=== PATIENT | female | born 1980 | race Caucasian/White ===

== ENCOUNTER → 2018-06-10 09:19 | Outpatient (CLI) | payer OTHER, SELFPAY ==
[2018-06-10 10:33] LABS: Hemoglobin A1c 5.9 % (4.2-6.3)
== END ==
PROVIDERS: Family Provider Family Medicine; PCP Family Medicine; Visit Provider Family Medicine
DX: E78.1 Pure hyperglyceridemia (principal); R73.01 Impaired fasting glucose
CPT/HCPCS: 36415; 83036

== ENCOUNTER 2019-05-03 03:44 | Emergency (ER) | payer OTHER, SELFPAY ==
[2019-01-25 10:52] VITALS: BMI 34.3
[2019-05-03 03:45] VITALS: BP 148/66; PULSE 100; RESP 20; TEMP 37.2; O2SAT 95; BMI 34.4
--- NOTE | 2019-05-03 04:13 | ED.VISSUMM ---
- ER Visit Summary Date of Service: 05/03/19 Chief Complaint: Back pain History of Present Illness: The patient is a 38 F who presents with back pain. This began yesterday around 5 PM. She describes it as sharp and shooting located in the lower back more so on the left. She denies any radiation to the legs. She has some chronic paresthesias burning numbness over the lateral left thigh but this is actually improved some since her back pain began. If standing still her pain is only 1 out of 10 however with movements it is severe at 10 out of 10. Is worsened by bending. Is relieved by standing or walking. No fevers, abdominal pain, urinary retention, fecal incontinence, prior back surgeries. Physical Examination: Heart rate 100 Patient standing at the edge of the bed and appears to be in pain Moist mucous membranes Heart regular rate and rhythm Lungs are clear No reproducible back tenderness 5 out of 5 dorsiflexion, plantarflexion, extensor hallucis longus Negative straight leg raise bilaterally Test Results: Not indicated Emergency Department Course and Treatment: Patient presents with lower back pain. She does not have signs or symptoms suggestive of serious acute pathology such as cauda equina syndrome or epidural abscess. She has normal strength and sensation. We will place her on a burst of prednisone and she was also given intramuscular Toradol here. We discussed opiates but she does not want to take these medications as she does not tolerate them well. She was advised to continue anti-inflammatories. She was advised to follow-up as an outpatient. We discussed she may benefit from other intervention such as physical therapy. She is agreeable to this plan. All questions answered at bedside. Patient discharged. Treatment Plan: [] Disposition: Discharge Impression: Low back pain This note was generated with [employer] dictation software. It may contain incorrect words, spelling, and punctuation that were not noted in review of the chart prior to signing ED Disposition - Plan for ED Patient: Referrals: Yonas Delgadillo III, MD [Primary Care Provider] -
--- NOTE | 2019-05-03 04:16 | ED.DEP ---
ED Disposition - Plan for ED Patient: Instructions: BACK PAIN (Acute or Chronic) Prescriptions: predniSONE tablet 60 mg PO DAILY #15 tab Prescription Printed Referrals: Yonas Delgadillo III, MD [Primary Care Provider] -
[2019-05-03] MEDS: Ketorolac 60 MG/2 ML Vial IM (04:21)
[2019-05-03 04:43] VITALS: BP 127/73
== END 2019-05-03 04:44 | disposition home or self-care (01) ==
LOC: ED 04:17
PROVIDERS: Emergency Provider Emergency Medicine; Family Provider Family Medicine; PCP Family Medicine
DX: M54.5 Low back pain (principal); G47.33 Obstructive sleep apnea (adult) (pediatric); E78.00 Pure hypercholesterolemia, unspecified; R20.0 Anesthesia of skin; R20.2 Paresthesia of skin
CPT/HCPCS: 96372; 99283

== ENCOUNTER 2019-05-11 14:00 | Emergency (ER) | payer OTHER, SELFPAY ==
[2019-05-11 14:01] VITALS: BP 152/89; PULSE 110; RESP 13; TEMP 37.2; O2SAT 96; BMI 34.4
--- NOTE | 2019-05-11 14:09 | NURSING ---
NO OLD EKGS
--- NOTE | 2019-05-11 14:28 | EKG12_ITS ---
Test Reason : PALPATIONS Blood Pressure : / mmHG Vent. Rate : 105 BPM Atrial Rate : 105 BPM P-R Int : 148 ms QRS Dur : 100 ms QT Int : 348 ms P-R-T Axes : 057 077 055 degrees QTc Int : 459 ms Sinus tachycardia Incomplete right bundle branch block Borderline ECG Confirmed by KRISTINE BURDEN, SCOTT ([id number]), editor at large APOLLO ROSALES ([id number]) on 05/15/2019 12:28:03 PM Referred By: JOSELYN Confirmed By:SCOTT CARMONA MD
--- NOTE | 2019-05-11 14:28 | RAD_ITS ---
STUDY: X-RAY CHEST REASON FOR EXAM: Female, 38 years old. Palpitations. TECHNIQUE: Single AP portable view of the chest. COMPARISON: None. FINDINGS: EKG electrodes are seen. The lungs are clear and expanded. There is no demonstrated pleural abnormality. Normal size heart. Normal mediastinum and ga. Normal visualized pulmonary arteries. Normal visualized aortic arch and descending thoracic aorta. Normal visualized thoracic spine. Normal visualized ribs, clavicles, and shoulders. There is no demonstrated abnormality of the visualized soft tissue structures of the upper abdomen. RAD/Chest 1 View (Portable) IMPRESSION: Normal x-ray examination of the chest. Electronically Signed: Heladio Alas, at 14:51 EDT , Service support ,
[2019-05-11 14:39] VITALS: BP 123/77; BP 124/80; BP 133/62; PULSE 100; PULSE 107; PULSE 98
[2019-05-11] MEDS: 0.9% Normal Saline 1,000 ML 1000 ML IV (14:48)
[2019-05-11 14:49] VITALS: O2SAT 98
[2019-05-11 14:52] LABS: Absolute Lymphocyte Count 2.26 X10^3/uL (0.83-4.51); Basophil% 0.9 % (0-1); Eosinophil# 0.79 X10^3/uL; Eosinophils% 7.1 % (0-5); Hematocrit 41.4 % (37-47); Hemoglobin 13.6 g/dL (12.0-15.0); Lymphocyte # 2.26 X10^3/ul (4.0); Lymphocyte % 20.3 % (19-41); Mean Corp Hgb Conc 32.9 g/dL (32-36); Mean Corpuscular Hgb 29.2 pg (27.0-32.0); Mean Corpuscular Volume 88.8 fL (81-99); Mean Platelet Vol. 9.2 fl (6.2-12.0); Monocyte# 0.92 X10^3/uL; Monocyte% 8.3 % (0-10); NRBC Flagged by Analyzer 0 % (0-5); Neutrophil # 6.99 X10^3/uL (2.7-7.7); Neutrophil % 62.9 % (47-70); Platelet Count 347 K/mm3 (150-450); RBC Distribution Width CV 14.5 % (11.6-14.6); RBC Distribution Width SD 46.1 fl (35.1-43.9); Red Blood Count 4.66 M/mm3 (4.2-5.4); White Blood Count 11.1 K/mm3 (4.4-11.0)
[2019-05-11 14:54] LABS: D-Dimer Quantitative (DVT/PE) < 0.27 FEU/ug/m (0.27-0.49)
[2019-05-11 15:03] LABS: Anion Gap 8 (5-15); BUN 12 mg/dL (7-18); BUN/Creat Ratio 14.8 RATIO (10-20); Calcium,Total 9.1 mg/dL (8.5-10.1); Chloride 105 mmol/L (98-107); Creatinine, Serum 0.81 mg/dL (0.55-1.02); EST Glomerular Filtration Rate 84 mL/min (>60); Est Glom Filt Rate - Afr Amer 102 mL/min (>60); Estimated Creatinine Clearance 92.47 ml/min; Glucose 151 mg/dL (74-106); Internal QC Validated? YES +Cl - CLEAR BKGD; Potassium 3.9 mmol/L (3.5-5.1); Pregnancy, Serum, hCG Quali. NEGATIVE Negative; Sodium Level 142 mmol/L (136-145); Thyroid Stim Hormone (TSH) 1.72 uIU/mL (0.358-3.74)
--- NOTE | 2019-05-11 15:14 | ED.DCSUM_ITS ---
- ER Visit Summary Date of Service: 05/11/19 Chief Complaint: Chest pain History of Present Illness: The patient is a [address] Yonas Delgadillo. She reports that she has chest pain that began today while she was at rest. Is intermittent pain lasts seconds at a time. Is to obtain or since she is pain- free currently. Is worsened by nothing relieved by nothing. She reports that she feels mildly short of breath. She also reports that she has had palpitations over the past couple days that she describes as a pounding, regular heart rate. She denies any associated nausea, vomiting, or diaphoresis. Patient does report that she has had nasal congestion and a sore throat. She has a nonproductive cough. She denies any fever or chills. She does have redness to her right eye and this was matted shut this morning. Physical Examination: Vitals: Stable. Afebrile. General: Well-nourished and well-developed. Head: Normocephalic atraumatic. Eyes: Diffuse conjunctival injection of the right eye. There is no matting at this time. Neck: Supple, no lymphadenopathy. No JVD. Nontender. Cardiovascular: Regular rate and rhythm. No murmurs. Respiratory: No respiratory distress. Clear to auscultation bilaterally. Abdominal: Soft, nontender, nondistended, normal bowel sounds. No guarding, rebound, or peritoneal signs. Back: Nontender. Extremities: Nontender, no edema. Skin: Normal color, no rash. Neurologic: Alert and oriented ?3. Cranial nerves II through XII are intact. Normal strength and sensation. Psych: Normal affect. Test Results: EKG is sinus tach at [address] changes. Troponin is negative. D-dimer is negative. test is negative. Chem-7 is normal. CBC shows a white count of 11.17 eosinophils. TSH is normal. Chest x-ray shows no acute disease. Emergency Department Course and Treatment: Patient was given a liter of normal saline. Her heart rate is decreased into the 90s. She is resting more comfortably. Treatment Plan: Patient will be discharged with erythromycin ointment. Instructed to follow-up with her primary care physician 1 to 2 days if not improving. Return to the emergency department for any worsening symptoms. Disposition: To home in improved and stable condition. Impression: 1. Atypical chest pain. This note was generated with [employer] dictation software. It may contain incorrect words, spelling, and punctuation that were not noted in review of the chart prior to signing ED Disposition - Plan for ED Patient: Disposition: Home or Assisted Living Instructions: CHEST PAIN, Uncertain Cause Referrals: Yonas Delgadillo III, MD [Primary Care Provider] - 1-2 Days if not improving
[2019-05-11 15:48] VITALS: BP 130/86; PULSE 90; O2SAT 95
== END 2019-05-11 15:49 | disposition home or self-care (01) ==
PROVIDERS: Emergency Provider Emergency Medicine; Family Provider Family Medicine; PCP Family Medicine
DX: R07.89 Other chest pain (principal); R94.31 Abnormal electrocardiogram [ECG] [EKG]; R05 Cough; J02.9 Acute pharyngitis, unspecified; R09.81 Nasal congestion; R00.2 Palpitations; E80.0 Hereditary erythropoietic porphyria; E78.00 Pure hypercholesterolemia, unspecified; J45.909 Unspecified asthma, uncomplicated; G47.33 Obstructive sleep apnea (adult) (pediatric)
CPT/HCPCS: 71045; 80048; 84443; 84484; 84703; 85025; 85379; 93005; 96360; 99285; J7030; A4216

== ENCOUNTER → 2019-05-30 06:27 | Outpatient (CLI) | payer OTHER, SELFPAY ==
[2019-05-11 14:01] VITALS: BMI 34.4
[2019-05-30 09:37] LABS: Hemoglobin A1c 6.4 % (4.2-6.3)
[2019-05-30 09:43] LABS: Cholesterol 246 mg/dL (200); Glucose 112 mg/dL (74-106); High Density Lipoprotein 35 mg/dL; Triglycerides 425 mg/dL
== END ==
PROVIDERS: Family Provider Family Medicine; PCP Family Medicine; Visit Provider Family Medicine
DX: E78.5 Hyperlipidemia, unspecified (principal); E78.1 Pure hyperglyceridemia
CPT/HCPCS: 36415; 80061; 82947; 83036

== ENCOUNTER → 2019-08-16 21:51 | Outpatient (CLI) | payer OTHER, SELFPAY | PROVIDERS: Family Provider Family Medicine; PCP Family Medicine; Referring Provider Nurse Practitioner Family; Visit Provider Nurse Practitioner Family | DX: G47.33 Obstructive sleep apnea (adult) (pediatric) (principal) | CPT/HCPCS: 95811 ==

== ENCOUNTER → 2019-09-15 06:28 | Outpatient (CLI) | payer OTHER, SELFPAY ==
[2019-09-15 08:03] LABS: ALB/GLOB Ratio 1.1 RATIO (0.9-2.4); AST(SGOT) 13 U/L (15-37); Alanine Aminotransfer ALT/SGPT 23 U/L (13-56); Albumin, Serum 3.9 g/dL (3.2-5.0); Alkaline Phosphatase 103 U/L (45-117); Anion Gap 7 (5-15); BUN 15 mg/dL (7-18); BUN/Creat Ratio 20.4 RATIO (10-20); Calcium,Total 8.8 mg/dL (8.5-10.1); Chloride 104 mmol/L (98-107); Creatinine, Serum 0.74 mg/dL (0.55-1.02); EST Glomerular Filtration Rate 94 mL/min (>60); Est Glom Filt Rate - Afr Amer 113 mL/min (>60); Globulin 3.7 g/dL (2.2-4.2); Glucose 102 mg/dL (74-106); Protein, Total 7.6 g/dL (6.4-8.2); Sodium Level 140 mmol/L (136-145)
[2019-09-15 08:14] LABS: Hemoglobin A1c 5.6 % (4.2-6.3)
[2019-09-20 09:57] LABS: Cholesterol 224 mg/dL (200); High Density Lipoprotein 35 mg/dL; Triglycerides 213 mg/dL; Very Low Density Lipoprotein 43 mg/dL (5-40)
== END ==
LOC: LAB.FUTURE 06:29 → LAB 06:31
PROVIDERS: Family Provider Family Medicine; PCP Family Medicine; Referring Provider Family Medicine; Visit Provider Family Medicine
DX: R73.02 Impaired glucose tolerance (oral) (principal)
CPT/HCPCS: 36415; 80053; 80061; 83036

== ENCOUNTER 2020-07-22 10:46 | Outpatient (RCR) | payer OTHER, SELFPAY ==
[2019-12-03 09:44] VITALS: BMI 34.4
== END 2020-07-24 23:59 ==
LOC: EMPH 10:46
PROVIDERS: Visit Provider Family Medicine Geriatric Medicine
DX: Z11.59 Encounter for screening for other viral diseases (principal)
CPT/HCPCS: 87635; U0003

== ENCOUNTER 2020-08-23 06:02 | Outpatient (RCR) | payer OTHER, SELFPAY ==
[2019-12-03 09:44] VITALS: BMI 34.4
== END 2020-08-24 23:59 ==
LOC: EMPH 06:02
PROVIDERS: Visit Provider Family Medicine Geriatric Medicine
DX: Z03.818 Encounter for observation for suspected exposure to other biological agents ruled out (principal)
CPT/HCPCS: 87426

== ENCOUNTER 2020-08-23 06:02 | Outpatient (RCR) | payer OTHER, SELFPAY ==
[2019-12-03 09:44] VITALS: BMI 34.4
== END 2020-08-24 23:59 ==
LOC: EMPH 06:02
PROVIDERS: Visit Provider Family Medicine Geriatric Medicine
DX: Z03.818 Encounter for observation for suspected exposure to other biological agents ruled out (principal)

== ENCOUNTER 2020-09-18 13:26 | Outpatient (RCR) | payer OTHER, SELFPAY ==
[2019-12-03 09:44] VITALS: BMI 34.4
== END 2020-09-23 23:59 ==
LOC: EMPH 13:26
PROVIDERS: Referring Provider Family Medicine Geriatric Medicine; Visit Provider Family Medicine Geriatric Medicine
DX: Z03.818 Encounter for observation for suspected exposure to other biological agents ruled out (principal)
CPT/HCPCS: 87426

== ENCOUNTER 2020-10-03 13:21 | Outpatient (RCR) | payer OTHER, SELFPAY ==
[2019-12-03 09:44] VITALS: BMI 34.4
== END 2020-10-24 23:59 ==
LOC: EMPH 13:21
PROVIDERS: Referring Provider Family Medicine Geriatric Medicine; Visit Provider Family Medicine Geriatric Medicine
DX: Z03.818 Encounter for observation for suspected exposure to other biological agents ruled out (principal)
CPT/HCPCS: 87426

== ENCOUNTER 2020-11-22 14:10 | Outpatient (RCR) | payer OTHER, SELFPAY ==
[2019-12-03 09:44] VITALS: BMI 34.4
== END 2020-11-24 23:59 ==
LOC: EMPH 14:10
PROVIDERS: Referring Provider Family Medicine Geriatric Medicine; Visit Provider Family Medicine Geriatric Medicine
DX: Z03.818 Encounter for observation for suspected exposure to other biological agents ruled out (principal)
CPT/HCPCS: 87426

== ENCOUNTER 2020-12-11 16:43 | Outpatient (RCR) | payer OTHER, SELFPAY ==
[2019-12-03 09:44] VITALS: BMI 34.4
== END 2020-12-22 23:59 ==
LOC: EMPH 16:43
PROVIDERS: Referring Provider Family Medicine Geriatric Medicine; Visit Provider Family Medicine Geriatric Medicine
DX: Z03.818 Encounter for observation for suspected exposure to other biological agents ruled out (principal)
CPT/HCPCS: 87426

== ENCOUNTER 2021-02-14 14:14 | Outpatient (RCR) | payer OTHER, SELFPAY ==
[2019-12-03 09:44] VITALS: BMI 34.4
== END 2021-02-21 23:59 ==
LOC: EMPH 14:14
PROVIDERS: Referring Provider Family Medicine Geriatric Medicine; Visit Provider Family Medicine Geriatric Medicine
DX: Z03.818 Encounter for observation for suspected exposure to other biological agents ruled out (principal)
CPT/HCPCS: 87426

== ENCOUNTER 2021-07-07 12:08 | Outpatient (RCR) | payer OTHER, SELFPAY ==
[2019-12-03 09:44] VITALS: BMI 34.4
== END 2021-07-24 23:59 ==
LOC: EMPH 12:08
PROVIDERS: Referring Provider Family Medicine Geriatric Medicine; Visit Provider Family Medicine Geriatric Medicine
DX: Z03.818 Encounter for observation for suspected exposure to other biological agents ruled out (principal)
CPT/HCPCS: 87426

== ENCOUNTER 2021-12-08 15:32 | Outpatient (RCR) | payer OTHER, SELFPAY ==
[2021-07-25 00:05] VITALS: BMI 34.4
== END 2021-12-22 23:59 ==
LOC: EMPH 15:32
PROVIDERS: PCP Family Medicine Geriatric Medicine; Referring Provider Family Medicine Geriatric Medicine; Visit Provider Family Medicine Geriatric Medicine
DX: Z03.818 Encounter for observation for suspected exposure to other biological agents ruled out (principal)
CPT/HCPCS: 87426

== ENCOUNTER → 2024-03-29 | Outpatient (CLI) | payer OTHER, SELFPAY ==
[2024-03-29 07:35] LABS: Hematocrit 39.1 % (37-47); Hemoglobin 12.5 g/dL (12.0-15.0); Mean Corpuscular Volume 90.7 fL (81-99); Mean Platelet Vol. 9.5 fl (6.2-12.0); Platelet Count 281 K/mm3 (150-450); RBC Distribution Width CV 13.5 % (11.6-14.6); RBC Distribution Width SD 44.8 fl (35.1-43.9); Red Blood Count 4.31 M/mm3 (4.2-5.4); Scan Indicated on CBC? Y/N NO
[2024-03-29 08:40] LABS: Vitamin B12 679 pg/mL (211-911); Vitamin D,25 Hydroxy 26.2 ng/mL
[2024-03-29 09:25] LABS: Anion Gap 6 (5-15); BUN 14 mg/dL (7-18); BUN/Creat Ratio 18.4 RATIO (10-20); Calcium,Total 8.9 mg/dL (8.5-10.1); Chloride 105 mmol/L (98-107); Cholesterol 252 mg/dL (200); Creatinine, Serum 0.76 mg/dL (0.55-1.02); EST Glomerular Filtration Rate 89 mL/min (>60); Est Glom Filt Rate - Afr Amer 107 mL/min (>60); Ferritin 28 ng/mL (8-252); Glucose 115 mg/dL (74-106); High Density Lipoprotein 41 mg/dL; Iron 105 ug/dL (50-170); Iron Binding Capacity,Total 390 ug/dL (250-450); PERCENT IRON SATURATION 26.9 % (15.0-55.0); Sodium Level 136 mmol/L (136-145); Thyroid Stim Hormone (TSH) 3.57 uIU/mL (0.358-3.74); Triglycerides 230 mg/dL; Very Low Density Lipoprotein 46 mg/dL (5-40)
[2024-03-29 11:59] LABS: Hemoglobin A1c 5.8 % (3.8-5.6)
== END | disposition home or self-care (01) ==
DX: Z79.899 Other long term (current) drug therapy (principal)
CPT/HCPCS: 36415; 80048; 80061; 82306; 82607; 82728; 83036; 83540; 83550; 84443; 85027

== ENCOUNTER 2024-05-16 14:29 | Emergency (ER) | payer OTHER, SELFPAY ==
[2024-05-16 14:31] VITALS: BP 144/76; PULSE 99; RESP 20; TEMP 36.4; O2SAT 94; BMI 30.3
[2024-05-16 14:40] VITALS: O2SAT 98
--- NOTE | 2024-05-16 14:42 | EX.ED.VIS.UR ---
HPI HPI - URI History of Present Illness Chief Complaint: Cough Informant: patient Onset/Context/Timing Onset: Days Context: Gradual Onset Timing: Continuous Current Severity: Mild Maximum Severity: Mild Associated Symptoms Associated Symptoms: Positive for Nasal Congestion, Myalgias, Diarrhea and Productive Cough (Yellowish sputum. No hemoptysis.) Narrative Narrative: 43-year-old female history of asthma and prediabetes. States since last week she has had a cough of yellowish sputum limited diarrhea. No vomiting. No fever. Has been shortness of breath at home last several days. No chest pain. No hemoptysis. No leg pain or swelling. No one else at home is ill. Prior similar symptoms: Yes Recent Illness/Hospitalization: No ROS ROS ED ROS Narrative Cough. Body aches. Diarrhea. Shortness of breath. Review of Systems ROS Unobtainable: Denies due to encephalopathy Constitutional Constitutional ED: Denies chills or fever(s) Eyes Eyes: Denies blurry vision ENT ENT ED: Denies ear pain Cardiovascular Cardiovascular: Denies chest pain Respiratory/Chest Respiratory/Chest: Reports cough, dyspnea and sputum Gastrointestinal Gastrointestinal: Reports diarrhea; Denies abdominal pain, constipation, melena, nausea or vomiting Genitourinary Genitourinary ED: Denies dysuria or hematuria Musculoskeletal Musculoskeletal: Denies arthralgias Integumentary Denies abscess Neurologic Neurologic: Denies headache(s) Psychiatric Psychiatric: Denies anxiety or depression Endocrine Endocrinology: Denies cold intolerance Hematologic/Lymphatic Hematologic/Lymphatic: Denies easy bleeding Allergic/Immunologic Allergic/Immunologic ED: Denies mouth swelling [facility] Medical History (Updated 05/16/24 @ 15:[address] Warren Ceja MD) History of pneumococcal infection Asthma Home Medications ?Medication ?Instructions ?Recorded ?Last Taken ?Type armodafinil 50 mg tablet (Nuvigil) 250 mg PO QAM 07/14/18 Unknown History calcium carbonate (Calci-Chew) 500 mg PO BID 07/14/18 Unknown History cetirizine 10 mg capsule 10 mg PO DAILY 07/14/18 Unknown History cholecalciferol (vitamin D3) 25 1,000 unit PO DAILY 07/14/18 Unknown History mcg (1,000 unit) capsule multivitamin,[id number] 1 tab PO DAILY 07/14/18 Unknown History (Complete Multivitamin tablet) sertraline 25 mg tablet (Zoloft) 175 mg PO DAILY 07/14/18 Unknown History metformin 500 mg tablet 425 mg PO BID 10/09/19 Unknown History albuterol sulfate 90 mcg/actuation 1 inh inhalation Q4H PRN shortness 05/16/24 Unknown Rx aerosol inhaler (Proventil HFA) of breath or wheezing #8.5 grams cyanocobalamin (vitamin B-12) 1,000 mcg PO DAILY 05/16/24 Unknown History 1,000 mcg capsule loratadine 10 mg tablet (Allergy 10 mg PO DAILY 05/16/24 Unknown History Relief (loratadine)) prednisone 20 mg tablet 40 mg (2 x 20 mg) PO DAILY 7 days 05/16/24 Unknown Rx #14 tabs Allergy/AdvReac Type Severity Reaction Status Date / Time cephalexin AdvReac Other Verified 05/16/24 14:30 Social History household members: spouse and family housing: house current occupational status: employed Smoking Status: Never smoker EXAM Physical Exam Narrative Exam Narrative: 43-year-old female vital signs are stable. She is afebrile. Her pulse ox is 94% on room air no hypoxia. H EENT exam posterior pharynx moist pink. No erythema or exudate. No trouble breathing or swallowing. Neck nontender. Lungs prolonged expiratory phase. Dry cough. No rales or rhonchi. Minimal scattered wheezes. Heart regular rhythm rate about 95 no murmur. Chest wall ribs nontender. Abdomen soft nontender. Back nontender. Moving all 4 extremities. Calves are nontender without edema or cords. Neurologically she is awake alert no focal motor deficits. Const Vital Signs: 05/16/24 14:31 05/16/24 14:40 05/16/24 14:55 Temperature 97.6 F L Temperature Source Temporal Pulse Rate 99 93 Respiratory Rate 20 H 16 Respiratory Effort Short of Breath Respiratory Pattern Normal Normal Blood Pressure 144/76 H Blood Pressure Mean 98 Pulse Ox 94 Oxygen Delivery Method Room Air Room Air Positive well nourished and well developed; Negative for cachectic or contractures General Appearance ED: well developed and NAD; Negative for cachectic, contractures, cyanotic, diaphoretic or pallor Nutritional Appearance: Negative for cachectic HEENT Reports moist mucous membranes; Denies dry mucous membranes normocephalic and atraumatic Mouth ED: No dry mucous membranes Mouth: No dry mucous membranes Throat: posterior oropharynx normal Eyes PERRL and EOMs intact bilaterally General Eye ED: Negative for pale conjunctiva, scleral icterus or other Neck no lymphadenopathy, supple, no meningeal signs and no JVD General: Negative for anterior neck swelling or lymphadenopathy Resp normal respiratory effort and No clear to auscultation bilaterally Resp Narrative: Prolonged expiratory phase. Few scattered wheezes. No rales or rhonchi. Effort and Inspection: Negative for retractions Auscultation: wheezes; Negative for rales, rhonchi or diminished lung sounds Cardio S1 normal heart sound, S2 normal heart sound and no murmurs Rate: regular rate Rhythm: regular rhythm GI non-tender, non-distended and no masses Inspection: Negative for abdominal distention Auscultation: normoactive bowel sounds Palpation: soft; Negative for tender, guarding, hepatomegaly, splenomegaly or mass Back/Spine no CVA tenderness and normal ROM General Back: Negative for CVA tenderness Cervical Spine: Negative for cervical spine tenderness Thoracic Spine / Upper Back: Negative for thoracic spinal tenderness Lumbar Spine / Lower Back: Negative for lumbar spinal tenderness Sacrum: Negative for tenderness Extremity normal to inspection and full ROM General Extremety ED: Negative for cyanosis, tenderness or other findings General Extremity: Negative for cyanosis or other findings Neuro oriented x3 and CN's II-XII intact bilaterally Sensorium / Orientation: alert, oriented to person, oriented to place and oriented to time; Negative for orientation impaired, lethargic or stuporous Motor Exam: strength 5/5 throughout; Negative for general weakness or strength abnormal Psych mental status grossly normal Appearance: Negative for other Attitude: No agitated Mood & Affect: Negative for depressed, anxious or tearful Skin General Skin Exam: Negative for jaundice or pallor Lesions: no lesions Rashes: no rashes MDM MDM MDM Narrative Medical decision making narrative: 43-year-old female history of asthma with URI symptoms may be COVID residual pneumonia. We are going to obtain a two-view chest x-ray to evaluate for possible pneumonia. She will be given a DuoNeb aerosol and oral prednisone. Repeat exam patient is doing somewhat better after the aerosol and steroids. Will treat as a viral URI. Outpatient inhaler and prednisone 40 mg a day for a week. If not improving they will follow-up for possible antibiotic therapy which I do not think is necessary at this time. History & Record Review Discussion w/independent historian: Patient and Family Additional record(s) reviewed:: Prior outpatient record, Prior ED visit and Prior labs Radiography Chest X-Ray - ED: 2 View and Read by ED Physician Diagnostic Testing: Clinical Impression(s) from Imaging Studies Chest X-Ray 05/16/24 14:50 IMPRESSION: Mild increased interstitial markings at the right lung base suggestive of a viral type of infection or mycoplasma. Electronically Signed: Heladio Alas MD at 15:06 EDT , Chest x-ray, 2 views, AP and lateral, interpreted by myself and the radiologist. She has normal cardiac silhouette. There is increased markings on the right most likely secondary to viral bronchitis. No obvious consolidation. Patient be treated as a viral syndrome. I did go over the x-ray with her and her . Discharge Plan Triage Chief Complaint: Cough ED Provider: Warren Ceja Dx/Rx/DC Orders Clinical Impression: Acute viral bronchitis, Asthma Instructions: Acute Bronchitis Prescriptions: New prednisone 20 mg tablet 40 mg PO DAILY 7 Days Qty: 14 0RF albuterol sulfate [Proventil HFA] 90 mcg/actuation HFA aerosol inhaler 1 inh inhalation Q4H PRN (Reason: shortness of breath or wheezing) Qty: 8.5 1RF No Action sertraline [Zoloft] 25 mg tablet 175 mg PO DAILY cetirizine 10 mg capsule 10 mg PO DAILY armodafinil [Nuvigil] 50 mg tablet 250 mg PO QAM calcium carbonate [Calci-Chew] 500 mg calcium (1,250 mg) tablet,chewable 500 mg PO BID cholecalciferol (vitamin D3) 1,000 unit capsule 1,000 unit PO DAILY multivitamin,[id number] [Complete Multivitamin] tablet 1 tab PO DAILY metformin 500 mg tablet 425 mg PO BID loratadine [Allergy Relief (loratadine)] 10 mg tablet 10 mg PO DAILY cyanocobalamin (vitamin B-12) 1,000 mcg capsule 1,000 mcg PO DAILY Primary Care Provider: Care Physician,No Primary Referrals: Yg Aaron MD [Med Staff - Over Short And Damage Clerk] - As Needed Care Physician,No Primary [Primary Care Provider] - Activity Restrictions/Additional Instructions: Inhaler 2 puffs every 2-4 hours as needed. Prednisone 40 mg a day starting tomorrow. Watch your blood sugars. This appears to be a viral respiratory infection. If it is not improving let me know I will start you on antibiotics. Print Language: Indonesian Disposition Disposition: Home, Self Care
--- NOTE | 2024-05-16 14:50 | RAD_ITS ---
STUDY: X-RAY CHEST REASON FOR EXAM: Female, 43 years old. Cough TECHNIQUE: PA and lateral views of the chest. COMPARISON: Comparison is made with prior study dated May 11, 2019. FINDINGS: Mild increased linear markings at the right lung base suggestive of possible viral or mycoplasma type of bronchitis. There is no demonstrated pleural abnormality. Normal size heart. Normal mediastinum and ga. Normal visualized pulmonary arteries. Normal visualized aortic arch and descending thoracic aorta. Normal visualized thoracic spine. Normal visualized ribs, clavicles, and shoulders. There is no demonstrated abnormality of the visualized soft tissue structures of the upper abdomen. RAD/Chest PA and Lateral IMPRESSION: Mild increased interstitial markings at the right lung base suggestive of a viral type of infection or mycoplasma. Electronically Signed: Heladio Alas MD at 15:06 EDT ,
[2024-05-16 14:55] VITALS: PULSE 93; RESP 16
[2024-05-16] MEDS: Ipratropium/Albuterol Sulfate 3 ML AMPUL.NEB INHALATION (14:55)
[2024-05-16] MEDS: predniSONE 20 MG Tablet 60 MG PO (15:00)
== END 2024-05-16 15:46 | disposition home or self-care (01) ==
PROVIDERS: Emergency Provider Emergency Medicine; Visit Provider Emergency Medicine
DX: J20.8 Acute bronchitis due to other specified organisms (principal); J45.909 Unspecified asthma, uncomplicated
CPT/HCPCS: 71046; 94640; 99283